=== PATIENT | female | born 1965 | race African-American/Black ===

== ENCOUNTER 2019-09-27 18:58 | Emergency (ER) | payer OTHER ==
[~2019-09-27] VITALS: Ht 157.5 cm; Wt 72.6 kg
[2019-09-27 20:25] VITALS: BP 122/65; TEMP 98.8
== END 2019-09-27 20:25 | disposition home or self-care (01) ==
LOC: ED 18:58
DX: H60.8X2 Other otitis externa, left ear (principal)
CPT/HCPCS: 96372; 99283; J0696; J1885

== ENCOUNTER 2019-11-09 20:11 | Emergency (ER) | payer OTHER ==
[~2019-11-09] VITALS: Ht 157.5 cm; Wt 83.9 kg
[2019-11-09 20:35] VITALS: BP 99/53; TEMP 98.5
== END 2019-11-09 22:34 | disposition home or self-care (01) ==
LOC: ED 20:11
DX: H60.8X2 Other otitis externa, left ear (principal); H65.192 Other acute nonsuppurative otitis media, left ear; J30.89 Other allergic rhinitis
CPT/HCPCS: 99282